=== PATIENT | female | born 1975 | race Caucasian/White ===

== ENCOUNTER 2021-07-21 08:31 | Outpatient (CLI) | payer MEDICARE, MEDICAID | END 2021-07-21 23:59 | disposition home or self-care (01) | LOC: RAD 08:31 | PROVIDERS: ATTEND Psychiatry & Neurology Neurology | DX: R94.01 Abnormal electroencephalogram [EEG] (principal); G35 Multiple sclerosis; G43.009 Migraine without aura, not intractable, without status migrainosus | CPT/HCPCS: 95819 ==